=== PATIENT | female | born 1950 | race Caucasian/White ===

== ENCOUNTER 2019-10-07 08:55 | Outpatient (CLI) | payer MEDICARE, SELFPAY ==
--- NOTE | ~2019-10-07 | XR_ITS ---
EXAMINATION: XR hand LT min 3V DATE: 10/07/2019 09:20 INDICATION: Left hand pain TECHNIQUE: Posteroanterior, oblique and lateral views of the left hand were obtained. COMPARISON: None. FINDINGS: Alignment of the hand appears normal. Assessment of the left wrist joint space and alignment is limit ed due to position of the hand with mild dorsiflexion. No fracture. Polyarticular osteoarthritis, mod erate severity at the first carpometacarpal joint and mild at multiple predominantly distal interphal angeal joints. Soft tissues are unremarkable. IMPRESSION: 1. Polyarticular osteoarthritis, moderate at the first carpometacarpal joint and mild at multiple pre dominantly distal interphalangeal joints. 2. Limited evaluation of the left wrist due to positioning of the hand. Could consider dedicated left wrist radiographs as clinically indicated. Reviewed, dictated and finalized at location A. IMPRESSION: 1. Polyarticular osteoarthritis, moderate at the first carpometacarpal joint an d mild at multiple predominantly distal interphalangeal joints. 2. Limited evaluation of the left wrist due to positioning of the hand. Could c onsider dedicated left wrist radiographs as clinically indicated.
== END 2019-10-07 08:56 | disposition home or self-care (01) ==
LOC: CHSIMG 08:57
PROVIDERS: PCP Nurse Practitioner Family; Visit Provider Orthopaedic Surgery
DX: M79.642 Pain in left hand (principal)
CPT/HCPCS: 73130

== ENCOUNTER 2019-11-22 11:49 | Emergency (ER) | payer MEDICARE, SELFPAY ==
--- NOTE | 2019-11-22 11:55 | ECG_ITS ---
Measurements Intervals [place] Rate: 66 P: 42 DE: 164 QRS: -17 QRSD: 95 T: 7 QT: 376 QTc: 394 Interpretive Statements SINUS RHYTHM VENTRICULAR PREMATURE COMPLEX DELAYED PRECORDIAL R/S TRANSITION BORDERLINE ST-T WAVE ABNORMALITY- ANT/INF LEADS BORDERLINE ECG Electronically Signed On 11-24-2019 7:04:56 CDT by Alex Gaming D.O.
[2019-11-22 12:05] VITALS: BP 148/76; PULSE 64; RESP 17; TEMP 36.8; O2SAT 99
--- NOTE | 2019-11-22 12:16 | ED.GENADULT ---
HPI - General Adult General Chief complaint: Arrhythmia/Palpitations Stated complaint: abnormal heart beat Time Seen by Provider: 11/22/19 11:51 Source: patient Mode of arrival: ambulatory History of Present Illness HPI narrative: Regina is a 69F with a PMH of Afib, HTN, DMII, LYNDON, and HLD that presented to the ED with concerns regarding her afib. Yesterday she felt like her heart was racing and she was back in Afib. Last night she took 125mg of metoprolol instead of her usual 75. Today she feels normal. She never had chest pain, syncope/near syncope, N/V or shortness of breath. She just had the palpitations. Related Data Home Medications Medication Instructions Recorded Confirmed empagliflozin [Jardiance] 25 mg PO DAILY 02/22/19 11/22/19 glimepiride 4 mg PO BID 02/22/19 11/22/19 levothyroxine 50 mcg PO DAILY 02/22/19 11/22/19 losartan-hydrochlorothiazide 1 tablet PO DAILY 02/22/19 11/22/19 metformin 1,000 mg PO BID 02/22/19 11/22/19 metoprolol succinate 75 mg PO DAILY 02/22/19 11/22/19 rivaroxaban [Xarelto] 20 mg PO DAILY 02/22/19 11/22/19 rosuvastatin 10 mg PO DAILY 02/22/19 11/22/19 Allergies Allergy/AdvReac Type Severity Reaction Status Date / Time Penicillins Allergy Intermediate Unknown Verified 10/07/19 10:30 Review of Systems Constitutional: Constitutional: Denies chills, Denies fatigue, Denies fever(s) and Denies weakness Eyes: Eyes: Reports no additional eye complaints ENT: Reports system reviewed and no additional complaints, except as documented Cardiovascular: Cardiovascular: Reports as per HPI Respiratory: Respiratory: Reports no additional respiratory complaints Gastrointestinal: Gastrointestinal: Reports no additional gastrointestinal complaints Genitourinary: Genitourinary: Reports no additional female genitourinary complaints Musculoskeletal: Musculoskeletal: Reports no additional musculoskeletal complaints Integumentary/Breasts: Skin/Breast: Reports system reviewed and no additional complaints, except as docu Neurologic: Reports system reviewed and no additional complaints, except as documented Psychiatric: Psychiatric: Reports no additional psychiatric complaints Endocrine: Endocrine: Reports no additional endocrine complaints Hematologic/Lymphatic: Hematologic/Lymphatic: Reports no additional hematologic/lymphatic complaints Allergic/Immunologic: Allergic/Immunologic: Reports no additional allergic/immunologic complaints [facility] Past Medical History Medical History Abnormality of heart beat Adenomatous colon polyp Anxiety Arrhythmia Atrial fibrillation, transient Diverticulitis Epigastric pain LYNDON (generalized anxiety disorder) GERD (gastroesophageal reflux disease) History of IBS Hyperlipidemia Hypertension LLQ pain Microscopic colitis Type 2 diabetes mellitus Last A1C as of 10/07/19: 7.9 Vision abnormalities Surgical History Surgical History H/O: hysterectomy History of appendectomy History of thyroidectomy Family History Family History Father Hypertension Family history of arthritis Family history of malignant neoplasm FH myocardial infarction male first degree age known Family history of type 2 diabetes mellitus Mother Family history of malignant neoplasm of ovary Diabetes mellitus Other Family history of Alzheimer's disease Family history of allergic disorder Family history of coronary artery disease Family history of thyroid disease Social History Social History Smoking status: Current some day smoker Alcohol intake: current Exam Const: General: no acute distress and alert Orientation/consciousness: patient oriented x3 Limitations: No altered mental status HENMT: Head: normal to inspection Eyes: Conjunctivae: conju
[2019-11-22 12:24] LABS: Basophils Absolute Auto 0.04 K/mm3 (0.00-0.10); Basophils Percent Auto 0.7 % (0.0-1.0); Eosinophils Absolute Auto 0.05 K/mm3 (0.02-0.50); Eosinophils Percent Auto 0.8 % (1.0-6.0); Hematocrit 41.7 % (35.0-42.0); Hemoglobin 13.8 g/dL (11.7-13.8); Immature Granulocyte Absolute 0.02 K/mm3 (0.00-0.00); Immature Granulocyte Percent A 0.3 % (0.0-0.0); Lymphocytes Absolute Auto 1.31 K/mm3 (1.10-4.50); Lymphocytes Percent Auto 21.6 % (18.0-42.0); Mean Corpuscular HGB Conc 33.1 g/dL (32.0-36.0); Mean Corpuscular Hemoglobin 28.4 pg (27.0-31.0); Mean Corpuscular Volume 85.8 fL (78.0-102.0); Mean Platelet Volume 8.8 fl (9.2-11.8); Monocytes Absolute Auto 0.55 K/mm3 (0.10-0.90); Monocytes Percent Auto 9.1 % (2.0-11.0); Neutrophils Absolute Auto 4.1 K/mm3 (1.7-7.2); Neutrophils Percent Auto 67.5 % (50.0-70.0); Platelet Count Result 192 K/mm3 (150-420); Red Blood Count 4.86 M/mm3 (4.20-5.40); Red Cell Distribution Width 12.6 % (11.6-14.4); White Blood Count 6.1 K/mm3 (4.8-10.8)
[2019-11-22 12:35] LABS: Prothrombin Time 10.7 Seconds (9.64-11.0)
[2019-11-22 12:42] LABS: BNP 63.2 pg/mL (0-100)
[2019-11-22 12:50] LABS: Alanine Aminotransferase 27 U/L (14-59); Albumin Level 3.6 g/dL (3.4-5.0); Alkaline Phosphatase 51 U/L (46-116); Anion Gap 9 mmol/L (8-16); Aspartate Amino Transferase 15 U/L (15-37); Bilirubin,Total 0.5 mg/dL (0.00-1.00); Blood Urea Nitrogen 13 mg/dL (7-18); Calcium 8.8 mg/dL (8.5-10.1); Carbon Dioxide 30 mmol/L (21-32); Chloride 101 mmol/L (98-108); Estimated Glomerular Filt Rate > 60; Glucose 188 mg/dL (70-99); Osmolality Calculated 295 mOsm/kg (285-295); Sodium 140 mmol/L (136-145); Total Protein 7.4 g/dL (6.4-8.2); Troponin I < 0.02 ng/mL (0.00-0.056)
[2019-11-22 12:51] LABS: Thyroid Stimulating Hormone 2.75 uIU/mL (0.36-3.74)
[2019-11-22 13:17] VITALS: BP 110/61; PULSE 65; RESP 16; O2SAT 98
== END 2019-11-22 13:19 | disposition home or self-care (01) ==
PROVIDERS: Emergency Provider Family Medicine; PCP Nurse Practitioner Family
DX: I48.91 Unspecified atrial fibrillation (principal); K21.9 Gastro-esophageal reflux disease without esophagitis; E78.5 Hyperlipidemia, unspecified; I10 Essential (primary) hypertension; E11.9 Type 2 diabetes mellitus without complications; F17.200 Nicotine dependence, unspecified, uncomplicated; Z79.899 Other long term (current) drug therapy
CPT/HCPCS: 36415; 80053; 80307; 83880; 84443; 84484; 85025; 85610; 93005; 99283; 99284

== ENCOUNTER 2019-12-11 12:12 | Outpatient (CLI) | payer MEDICARE, SELFPAY ==
--- NOTE | 2019-12-11 12:24 | ECHO_ITS ---
Patient Info Name: Regina Quinteros Age: 69 years : 1950 Gender: Female Ht: 69 in Wt: 209 lbs BSA: 2.18 m2 HR: 68 bpm BP: 140 / 63 mmHg Heart Rhythm: Sinus Rhythm Technical Quality: Good Exam Date: 12/11/2019 12:29 PM Exam Location: [facility] EM[facility] Patient Status: Outpatient Admit Date: 12/11/2019 Staff Ordering Physician: Lakhwinder Johns MD Cylinder Press Operator Apprentice: Natividad Balderrama RDCS Attending Provider: Lakhwinder Johns MD Referring Physician: Nat RUIZ; Exam Type: CA echo doppler color flow Study Info Indications I48.0 - Paroxysmal atrial fibrillation Complete two-dimensional, color flow and Doppler transthoracic echocardiogram is performed. Strain analysis performed. History/Risk Factors Hypertension: Yes Dyslipidemia: Yes Congenital Heart Disease (CHD): No Diabetic Therapy: Oral Peripheral Arterial Disease (PAD): No Myocardial Infarction (RI): No Chronic Lung Disease: No Obesity: Yes Renal Disease: No Coronary Artery Disease (CAD) No Congestive Heart Failure (CHF): No Cardiomyopathy/LV Systolic Dysfunction: No Diabetes Mellitus: Yes COPD: No Cerebrovascular Disease: No Family History: Diabetes Mellitus, Coronary Artery Disease Deep Vein Thrombosis (DVT): None Dialysis: None Frailty Scale (CSHA): 2: Well Cardiac Arrest: No Summary 1. Complete two-dimensional, color flow and Doppler transthoracic echocardiogram is performed. 2. Left ventricular chamber dimension is normal. 3. Left ventricular systolic function is normal, estimated at 55-60%. 4. There is mildly increased left ventricular wall thickness. 5. The left ventricular diastolic function is grade I diastolic dysfunction. 6. E/e' 11 is mildly elevated. 7. Global longitudinal strain is normal at -17.8%. 8. Left atrial chamber dimension is mildly enlarged. 9. There is mild tricuspid valve regurgitation. 10. No pulmonary hypertension, estimated pulmonary arterial systolic pressure is 27 mmHg. 11. There is trace pulmonic regurgitation. Recommendations * Continue medical therapy for diabetes. Left Ventricle E/e' 11 is mildly elevated. Global longitudinal strain is normal at -17.8%. Left ventricular chamber dimension is normal. Left ventricular systolic function is normal, estimated at 55-60%. There is mildly increased left ventricular wall thickness. The left ventricular diastolic function is grade I diastolic dysfunction. Right Ventricle Right ventricular chamber dimension is normal. Right ventricular systolic function is normal. Left Atria Left atrial chamber dimension is mildly enlarged. Right Atria Right atrial chamber dimension is normal. Aortic Valve The aortic valve is trileaflet. There is no aortic valve stenosis. There is no aortic valve regurgitation. Pulmonic Valve There is trace pulmonic regurgitation. Mitral Valve There is no mitral valve stenosis. There is no mitral valve regurgitation. Tricuspid Valve There is mild tricuspid valve regurgitation. No pulmonary hypertension, estimated pulmonary arterial systolic pressure is 27 mmHg. Pericardium/Pleural There is no pericardial effusion. Inferior Vena Cava Normal inferior vena cava with >50% collapse upon inspiration consistent with normal right atrial pressure, 5 mmHg. Aorta The aortic root size at the sinus of Valsalva is normal. Left Ventricular Outflow Tract
[2019-12-11 12:39] LABS: Creatinine Urine 58.88 mg/dL (40-278); Microalbumin Urine Random < 13.0 mg/L
[2019-12-11 13:30] LABS: Cholesterol 147 mg/dL (0-200); Free T4 Free Thyroxine 0.96 ng/dL (0.76-1.46); HDL Direct 51 mg/dL (40-60); LDL Cholesterol Calculated 53 mg/dL (<130); Triglycerides 217 mg/dL (0-150)
== END 2019-12-11 12:13 | disposition home or self-care (01) ==
LOC: CHSIMG 12:15
PROVIDERS: PCP Nurse Practitioner Family; Visit Provider Internal Medicine Cardiovascular Disease
DX: I48.0 Paroxysmal atrial fibrillation (principal); E11.59 Type 2 diabetes mellitus with other circulatory complications; I10 Essential (primary) hypertension; E11.69 Type 2 diabetes mellitus with other specified complication; E78.5 Hyperlipidemia, unspecified; E03.9 Hypothyroidism, unspecified
CPT/HCPCS: 36415; 80061; 82043; 84439; 93306

== ENCOUNTER 2020-01-26 08:51 | Outpatient (CLI) | payer MEDICARE, SELFPAY ==
--- NOTE | ~2020-01-26 | MM_ITS ---
EXAMINATION: MM screening [facility] BI w bear HISTORY: Screening mammogram TECHNIQUE: Craniocaudal and mediolateral oblique 3-D tomosynthesis images were obtained and synthetic 2-D images were generated. CAD analysis was submitted and interpreted. COMPARISON: 08/23/2017, 05/24/2016 BREAST PARENCHYMAL COMPOSITION: There are scattered areas of fibroglandular density. FINDINGS: There is no evidence of suspicious mass, calcification, or architectural distortion to sugg est malignancy in either breast. There has been no suspicious interval change. IMPRESSION: 1. No mammographic evidence of malignancy. 2. Recommend routine screening mammography in one year. BI-RADS Category 1: Negative Reviewed, dictated and finalized at location A.
== END 2020-01-26 08:52 | disposition home or self-care (01) ==
PROVIDERS: PCP Nurse Practitioner Family; Visit Provider Student in an Organized Health Care Education/Training Program
DX: Z12.31 Encounter for screening mammogram for malignant neoplasm of breast (principal)
CPT/HCPCS: 77063; 77067

== ENCOUNTER → 2020-08-11 00:13 | Outpatient (CLI) | payer MEDICARE, SELFPAY ==
[2020-08-11 17:04] LABS: SARS-CoV-2 RNA PCR Negative
== END ==
PROVIDERS: PCP Nurse Practitioner Family; Visit Provider Orthopaedic Surgery
DX: Z20.822 Contact with and (suspected) exposure to COVID-19 (principal)
CPT/HCPCS: 36415; 80048; C9803; U0003; U0005

== ENCOUNTER 2020-08-11 08:25 | Outpatient (CLI) | payer MEDICARE, SELFPAY ==
[2020-08-11 09:07] LABS: Anion Gap 4 mmol/L (8-16); Blood Urea Nitrogen 11 mg/dL (7-17); Calcium 9.3 mg/dL (8.4-10.2); Carbon Dioxide 36 mmol/L (22-30); Chloride 101 mmol/L (98-107); Estimated Glomerular Filt Rate > 60; Glucose 111 mg/dL (65-105); Potassium 3.9 mmol/L (3.4-5.0); Sodium 141 mmol/L (137-145)
== END 2020-08-11 08:26 | disposition home or self-care (01) ==
LOC: ANHSURGERY 08:26
PROVIDERS: Anesthesiology; PCP Nurse Practitioner Family; Visit Provider Orthopaedic Surgery
DX: Z01.812 Encounter for preprocedural laboratory examination (principal); E11.9 Type 2 diabetes mellitus without complications
CPT/HCPCS: 36415; 80048

== ENCOUNTER 2020-08-13 06:01 | Day surgery (SDC) | payer MEDICARE, SELFPAY ==
[2020-08-10 14:05] VITALS: BMI 31.6
--- NOTE | 2020-08-12 12:52 | WPDANESEPPF ---
Anes - Initial Pre Proc Eval Procedure: Operation Date: 08/13/20 09:00 Proposed Procedures p Left Middle Finger Release of A-1 Joan - Pratik Epperson MD Date/Time: 08/12/20 12:52 Surgeon: Pratik Epperson MD Pre Op Diagnosis: 3rd digit trigger finger left Patient Data Age: 69 Gender: F Height: 1.73 m Weight: 94.54 kg Allergies Allergy/AdvReac Type Severity Reaction Status Date / Time Penicillins AdvReac Intermediate RASH ON Verified 08/13/20 08:14 STOMACH, N/V, DIARRHEA Home Medications Medication Instructions Recorded Confirmed Type empagliflozin [Jardiance] 25 mg PO DAILY 02/22/19 08/13/20 History glimepiride 4 mg PO BID 02/22/19 08/13/20 History levothyroxine 50 mcg PO DAILY 02/22/19 08/13/20 History losartan-hydrochlorothiazide 1 tablet PO DAILY 02/22/19 08/13/20 History metformin 1,000 mg PO BID 02/22/19 08/13/20 History metoprolol succinate 75 mg PO QAM 02/22/19 08/13/20 History rivaroxaban [Xarelto] 20 mg PO DAILY 02/22/19 08/13/20 History rosuvastatin 10 mg PO DAILY 02/22/19 08/13/20 History alprazolam 0.5 mg tablet 0.5 mg PO DAILY PRN #20 tablet 02/26/19 08/13/20 Rx budesonide 3 mg 3 mg PO DAILY #30 cap 12/04/19 08/13/20 Rx capsule,delayed,extended release chlorhexidine gluconate 4 % 1 applic TOPICAL ONCE #118 ml 08/10/20 08/13/20 Rx topical liquid exenatide microspheres [Bydureon 2 mg SUBCUT WEEKLY 08/10/20 08/13/20 History BCise] Patient hx anesthesia problems: none Family hx anesthesia problems: none PMFSH Past Medical History Medical History Abnormality of heart beat Adenomatous colon polyp Anxiety Arrhythmia Atrial fibrillation, transient Diverticulitis Epigastric pain LYNDON (generalized anxiety disorder) GERD (gastroesophageal reflux disease) History of IBS Hyperlipidemia Hypertension LLQ pain Microscopic colitis Type 2 diabetes mellitus Last A1C as of 10/07/19: 7.9 Vision abnormalities Surgical History Surgical History H/O: hysterectomy History of appendectomy History of thyroidectomy Family History Family History Father Hypertension Family history of arthritis Family history of malignant neoplasm FH myocardial infarction male first degree age known Family history of type 2 diabetes mellitus Mother Family history of malignant neoplasm of ovary Diabetes mellitus Other Family history of Alzheimer's disease Family history of allergic disorder Family history of coronary artery disease Family history of thyroid disease Social History Social History (Updated 08/09/20 @ 13:13 by Kenia Otero MA) Smoking status: Never smoker Second hand tobacco smoke exposure: No Alcohol intake: current Alcohol use details: STATES MAYBE 1/MONTH Substance use: never Substance use type: does not use Living arrangements: with family Additional living arrangements comments: PT LIVES WITH SPOUSE - [place] Gender identity (if verbalized by the patient): Female Spiritual care concerns: No Anes - Eval Final PreProcedure Day of Procedure 08/12/20 12:52 Patient weight: obese Heart: regular rate and rhythm Lungs: clear to auscultation and normal air movement Airway: Mallampati scale class II and special considerations poor dentition (loose implant on top left) Neurological: alert and oriented Last oral intake: >/= 8 hours ASA classification: III Emergent: no Anesthetic plan: proceed Anesthesia type and monitoring: general LMA and standard monitoring Informed Consent: The patient's anesthetic plan and its attendant risks and benefits were discussed with the patient/family/POA. Questions were solicited and answers provided to the satisfaction of the patient/family/POA.
[2020-08-13] VITALS (8 sets, daily range): BP systolic 123–151; BP diastolic 59–85; PULSE 63–77; RESP 10–20; TEMP 36.6–37; O2SAT 92–100
--- NOTE | 2020-08-13 07:22 | WPDHPUPDATE1 ---
History and Physical Update Update Date/Time: 08/13/20 07:22 History and Physical has been reviewed, including an updated exam of the patient. There are NO changes in the patient's condition. Risks, benefits, and alternatives have been discussed and questions answered. Patient agrees to proceed with procedure.
[2020-08-13] MEDS: LACTATED RINGERS 1,000 ML 30 ML IV CONT (08:25)
[2020-08-13 08:38] LABS: Glucose Point of Care 136 (65-105)
[2020-08-13] MEDS: CELECOXIB 200 MG CAPSULE PO (08:38)
[2020-08-13] MEDS: ACETAMINOPHEN 500 MG TABLET 1000 MG PO (08:38)
[2020-08-13] MEDS: ceFAZolin 2 GM/D5W 50 ML 2 GM/50 ML BAG IVPB (09:17)
[2020-08-13] MEDS: BUPIVACAINE HCL 0.5% PF 30 ML VIAL INFILTRATE (09:43)
--- NOTE | 2020-08-13 09:57 | PM.PROC ---
Procedure Note - Detailed Date of procedure: 08/13/20 Pre-op diagnosis: 3rd digit trigger finger left Post-op diagnosis: same Procedure performed: RELEASE OF A1 JET LEFT 3RD DIGIT Description of procedure: THE PATIENT WAS TAKEN TO THE OR IN STABLE CONDITION. THE LEFT UPPER EXTREMITY WAS PREPPED AND DRAPED IN THE USUAL STERILE FASHION. THE TORNEQUET WAS INFLATED. AN INCISION WS MADE OVER THE 3RD DIGIT A1 JET DOWN THROUGH THE SUBCUTANEOUS TISSUES UNTIL THE A1 JET SHEATH WAS VISUALIZED. AN INCISION WAS MADE OVER THE JET UNTIL THE FLEXOR TENDON WAS IDENTIFIED. THE INCISION CONTINUED PROXIMALLY AND DISTALLY UNTIL THE JET WAS RELEASED AND THE TENDON EXCURSION WAS WITHOUT TRIGGERING. THE TENDONS WERE DIRECTLY VISUALIZED AND WERE INTACT. THE TORNEQUET WAS DEFLATED AND THE BLEEDERS CAUTERIZED. THE WOUND WAS WASHED THOROUGHLY WITH STERILE WATER. THE SKIN WAS REPAIRED WITH 4-0 NYLON. A STERILE DRESSING WAS APPLIED. THE PATIENT WAS EXTUBATED AND SENT TO RECOVERY ROOM. Anesthesia: GLMA Surgeon: Pratik Epperson MD Estimated blood loss (mL): 1 Complications: No immediate complications Condition: stable Disposition: PACU
[2020-08-13 13:29] LABS: Glucose Point of Care 107 (65-105)
== END 2020-08-13 11:55 | disposition home or self-care (01) ==
PROVIDERS: PCP Nurse Practitioner Family; Visit Provider Orthopaedic Surgery
PROC: (CPT 26055; principal; 2020-08-13 09:00)
DX: M65.332 Trigger finger, left middle finger (principal); I48.91 Unspecified atrial fibrillation; K21.9 Gastro-esophageal reflux disease without esophagitis; I10 Essential (primary) hypertension; E78.5 Hyperlipidemia, unspecified; E11.9 Type 2 diabetes mellitus without complications; F41.1 Generalized anxiety disorder; Z79.84 Long term (current) use of oral hypoglycemic drugs; E66.9 Obesity, unspecified; Z68.31 Body mass index [BMI] 31.0-31.9, adult
CPT/HCPCS: 26055; 82948; A9270; J0690; J1100; J2250; J2405; J2704; J3010; J7120

== ENCOUNTER 2020-09-29 07:05 | Outpatient (CLI) | payer MEDICARE, SELFPAY ==
[2020-09-29 08:34] LABS: Alanine Aminotransferase 32 U/L (14-59); Albumin Level 3.6 g/dL (3.4-5.0); Alkaline Phosphatase 60 U/L (46-116); Anion Gap 11 mmol/L (8-16); Aspartate Amino Transferase 15 U/L (15-37); Bilirubin,Total 0.4 mg/dL (0.00-1.00); Blood Urea Nitrogen 13 mg/dL (7-18); Carbon Dioxide 30 mmol/L (21-32); Chloride 102 mmol/L (98-108); Estimated Glomerular Filt Rate > 60; Glucose 129 mg/dL (70-99); Osmolality Calculated 298 mOsm/kg (285-295); Potassium 3.9 mmol/L (3.5-5.1); Sodium 143 mmol/L (136-145); Thyroid Stimulating Hormone 3.45 uIU/mL (0.36-3.74)
== END 2020-09-29 07:06 | disposition home or self-care (01) ==
PROVIDERS: PCP Family Medicine; Visit Provider Internal Medicine Endocrinology, Diabetes & Metabolism
DX: E11.65 Type 2 diabetes mellitus with hyperglycemia (principal); E03.9 Hypothyroidism, unspecified
CPT/HCPCS: 36415; 80053; 84443

== ENCOUNTER 2021-09-12 07:39 | Outpatient (CLI) | payer MEDICARE, SELFPAY ==
--- NOTE | ~2021-09-12 | US_ITS ---
US renal BI DATE: 09/12/2021 08:07 INDICATION: Abdominal pain. Left intermittent flank pain for 2 months TECHNIQUE: Real-time imaging of the kidneys and urinary bladder COMPARISON: None FINDINGS: No renal mass lesion or hydronephrosis is evident. The urinary bladder is unremarkable. IMPRESSION: No significant abnormality Reviewed, dictated and finalized at Location A. Reviewed, dictated and finalized at location A. IMPRESSION: No significant abnormality
== END 2021-09-12 07:40 | disposition home or self-care (01) ==
LOC: CHSIMG 07:44
PROVIDERS: PCP Family Medicine; Visit Provider Nurse Practitioner Family
DX: R10.9 Unspecified abdominal pain (principal)
CPT/HCPCS: 76775

== ENCOUNTER 2022-02-06 07:36 | Outpatient (CLI) | payer MEDICARE, SELFPAY ==
--- NOTE | ~2022-02-06 | CT_ITS ---
EXAMINATION: CT abdomen pelvis w con INDICATION: Abdominal and left flank pain TECHNIQUE: Computed tomographic images of the abdomen and pelvis were obtained after the administrati on of 100 cc of Omnipaque 350 intravenous contrast. The dose-length product (DLP) was 841.79 mGy-cm. Automated exposure control and iterative reconstruction technique were employed. COMPARISON: 06/02/2010 FINDINGS: Minimal dependent atelectasis is present in the lung bases. The heart size is normal. A sta ble 2 mm nodule of the right middle lobe is consistent with old granulomatous disease. There is a sma ll sliding hiatal hernia. The gallbladder is surgically absent. There is mild enlargement of the comm on bile duct and central intrahepatic ducts which is likely due to post cholecystectomy state. The li qing, spleen, pancreas, and adrenal glands are normal. Hypoattenuating lesions in the kidneys, measuri ng up to 4 mm on the right, are too small to characterize but likely represent cysts. No pathological ly enlarged abdominal or pelvic lymph nodes are identified. There is no free intraperitoneal gas or e vidence of bowel obstruction. Colonic diverticulosis is present without evidence of diverticulitis. T here is mild lumbar spondylosis. IMPRESSION: 1. No CT correlate for the patient's symptoms. Reviewed, dictated and finalized at location B. 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
[2022-02-06 08:05] LABS: Estimated Glomerular Filt Rate > 60
== END 2022-02-06 07:37 | disposition home or self-care (01) ==
LOC: CHSIMG 07:38
PROVIDERS: PCP Family Medicine; Visit Provider Family Medicine
DX: R10.13 Epigastric pain (principal); R10.9 Unspecified abdominal pain
CPT/HCPCS: 74177; Q9967

== ENCOUNTER 2022-08-10 10:16 | Outpatient (CLI) | payer MEDICARE, SELFPAY ==
--- NOTE | ~2022-08-10 | XR_ITS ---
Right Shoulder Technique: AP and scapular Y views were obtained. Clinical History: Pain Findings: No fracture or dislocation is seen. Osseous alignment is anatomic. There is mild AC joint d egenerative change. Glenohumeral joint is intact. Soft tissues are unremarkable. Impression: Mild AC joint degenerative change. Reviewed, dictated and finalized at location . Impression: Mild AC joint degenerative change.
--- NOTE | ~2022-08-10 | XR_ITS ---
Cervical Spine: AP, lateral, open-mouth views Clinical History: Pain Findings: There is straightening of the normal cervical lordosis. Minimal grade I anterolisthesis of C4 over C5 present. Intervertebral disc spaces are well preserved. There is mild to moderate facet ar thropathy the mid cervical spine. Pre-vertebral soft tissues are unremarkable. Impression: Minimal grade 1 anterolisthesis of C4 over C5. Mild degenerative spondylosis otherwise, as noted above. Reviewed, dictated and finalized at location . Impression: Minimal grade 1 anterolisthesis of C4 over C5. Mild degenerative spondylosis otherwise, as noted above.
--- NOTE | ~2022-08-10 | MM_ITS ---
EXAMINATION: MM screening [facility] BI w bear HISTORY: Screening mammogram TECHNIQUE: Craniocaudal and mediolateral oblique 3-D tomosynthesis images were obtained and synthetic 2-D images were generated. CAD analysis was submitted and interpreted. COMPARISON: 01/26/2020, 08/23/2017, 05/24/2016 BREAST PARENCHYMAL COMPOSITION: There are scattered areas of fibroglandular density. FINDINGS: No suspicious mass, calcification, or architectural distortion are identified in either tosin ast to suggest malignancy. There has been no suspicious interval change. IMPRESSION: 1. No mammographic evidence of malignancy. 2. Recommend routine screening mammography in one year. BI-RADS Category 1: Negative Reviewed, dictated and finalized at location A.
== END 2022-08-10 10:17 | disposition home or self-care (01) ==
LOC: CHSIMG 10:19
PROVIDERS: PCP Family Medicine; Visit Provider Family Medicine
DX: Z12.31 Encounter for screening mammogram for malignant neoplasm of breast (principal); S49.91XA Unspecified injury of right shoulder and upper arm, initial encounter; M54.2 Cervicalgia; M43.02 Spondylolysis, cervical region
CPT/HCPCS: 72040; 73030; 77063; 77067

== ENCOUNTER 2022-11-02 06:41 | Outpatient (CLI) | payer MEDICARE, SELFPAY ==
--- NOTE | ~2022-11-02 | MR_ITS ---
MRI of the cervical spine Clinical History: Right-sided paresthesias Technique: Axial T2-weighted and gradient images, and sagittal T1-weighted, T2-weighted, and STIR omari ges were acquired. Findings: There is no fracture or subluxation of the cervical spine. Vertebral bodies maintain normal height and alignment. No suspicious bone marrow signal abnormality seen. At C2-C3, there is no significant disc bulge or herniation. There is no spinal canal stenosis, cord c ompression, or neural foraminal narrowing. At C3-C4, there is minimal right paracentral to right foraminal osteophyte formation. No spinal canal stenosis, cord compression, or definite neural foraminal narrowing. There is mild left facet arthrop athy. At C4-C5, there is minimal disc osteophyte complex and mild bilateral facet arthropathy. No central c anal stenosis or cord compression. Probable mild left neural foraminal narrowing. Right neural forame n preserved. At C5-C6, there is a broad-based disc protrusion, which mildly flattens the ventral cord. There is bi lateral neural foraminal narrowing. At C6-C7, there is no disc bulge or herniation. No spinal canal stenosis, cord compression, or neural foraminal narrowing. No abnormal signal evident in the spinal cord. Paravertebral soft tissues are unremarkable. Impression: Broad-based disc protrusion at C5-C6, resulting in mild flattening the ventral cord. Multilevel mild neural foraminal narrowing, as detailed above. Reviewed, dictated and finalized at [facility]. Impression: Broad-based disc protrusion at C5-C6, resulting in mild flattening the ventral cord. Multilevel mild neural foraminal narrowing, as detailed above.
== END 2022-11-02 06:42 | disposition home or self-care (01) ==
LOC: CHSIMG 06:42
PROVIDERS: PCP Family Medicine; Visit Provider Family Medicine
DX: M54.12 Radiculopathy, cervical region (principal); M50.222 Other cervical disc displacement at C5-C6 level
CPT/HCPCS: 72141

== ENCOUNTER 2023-09-18 00:28 | Day surgery (SDC) | payer MEDICARE, SELFPAY ==
[2023-09-04 13:42] VITALS: BMI 26.9
--- NOTE | 2023-09-05 09:35 | PC.NURSE ---
Spoke with _PATIENT__ regarding medication _XARELTO__. Pt. verbalizes understanding that the last dose of _XARELTO is to be taken on _09/15/2023__ and the Endoscopist will instruct them when to restart after the procedure.
--- NOTE | 2023-09-05 11:12 | PC.NURSE ---
Spoke with __PATIENT__ regarding medication __XARELTO____. Pt. verbalizes understanding that the last dose of _XARELTO_ is to be taken on ____09/05/2023___ and the Endoscopist will instruct them when to restart after the procedure.
[2023-09-18 09:56] VITALS: BP 121/79; PULSE 77; RESP 18; TEMP 36.1; O2SAT 99; BMI 26.5
[2023-09-18] MEDS: LACTATED RINGERS 1,000 ML 150 ML IV CONT (10:21)
[2023-09-18 10:27] LABS: Glucose Point of Care 145 mg/dl (65-105)
--- NOTE | 2023-09-18 10:59 | WPDANESEPPF ---
Anes - Initial Pre Proc Eval Procedure: Operation Date: 09/18/23 11:30 Proposed Procedures p Colonoscopy - Alirio Alicia MD Date/Time: 09/18/23 10:59 Surgeon: Alirio Alicia MD Pre Op Diagnosis: benign neoplasm of colon Patient Data Age: 73 Gender: F Height: 1.73 m Weight: 79.1 kg Last Vital Signs Temp 36.1 C L 09/18/23 09:56 Pulse 77 09/18/23 09:56 Resp 18 09/18/23 09:56 BP 121/79 09/18/23 09:56 Pulse Ox 99 09/18/23 09:56 O2 Del Method Room Air 09/18/23 09:56 Allergies Allergy/AdvReac Type Severity Reaction Status Date / Time Penicillins Allergy Intermediate RASH ON Verified 09/18/23 10:06 STOMACH, N/V, DIARRHEA Home Medications Medication Instructions Recorded Confirmed Type empagliflozin 25 mg tablet 25 mg PO DAILY 02/22/19 09/18/23 History (Jardiance) glimepiride 4 mg tablet 4 mg PO BID 02/22/19 09/18/23 History levothyroxine 50 mcg tablet 50 mcg PO DAILY 02/22/19 09/18/23 History losartan 50 mg-hydrochlorothiazide 1 tablet PO DAILY 02/22/19 09/18/23 History 12.5 mg tablet metformin 500 mg tablet,extended 1,000 mg PO BID 02/22/19 09/18/23 History release 24 hr rivaroxaban 20 mg tablet (Xarelto) 20 mg PO QPM 02/22/19 09/18/23 History rosuvastatin 10 mg tablet 10 mg PO DAILY 02/22/19 09/18/23 History alprazolam 0.5 mg tablet (Xanax) 0.5 mg PO DAILY PRN anxiety #20 02/02/22 09/18/23 Rx tabs metoprolol succinate 50 mg 50 mg PO QAM 08/10/22 09/18/23 History tablet,extended release 24 hr multivitamin (Daily Multi-Vitamin 1 tablet PO DAILY 06/28/23 09/18/23 History tablet) semaglutide 1 mg/dose (4 mg/3 mL) 1 mg subcut WEEKLY 06/28/23 09/18/23 History subcutaneous pen injector (Ozempic) magnesium oxide 400 mg PO DAILY 09/04/23 09/18/23 History metoprolol succinate 100 mg 100 mg PO DAILY 09/04/23 09/18/23 History tablet,extended release 24 hr Laboratory Tests 09/18/23 10:14 POC Capillary Glucose 145 H mg/dl (65-105) Patient hx anesthesia problems: none Family hx anesthesia problems: none Results Review: All pre-operative results and documents have been reviewed as part of the pre-operative evaluation. [facility] Past Medical History Medical History Abnormality of heart beat Adenomatous colon polyp Anxiety Arrhythmia Atrial fibrillation, transient Diverticulitis Epigastric pain LYNDON (generalized anxiety disorder) GERD (gastroesophageal reflux disease) History of IBS Hyperlipidemia Hypertension LLQ pain Microscopic colitis Status post hysteroscopy Type 2 diabetes mellitus Last A1C as of 10/07/19: 7.9 Vision abnormalities Surgical History Surgical History History of appendectomy History of thyroidectomy Family History Family History Father Hypertension Family history of arthritis Family history of malignant neoplasm FH myocardial infarction male first degree age known Family history of type 2 diabetes mellitus Mother Family history of malignant neoplasm of ovary Diabetes mellitus Other Family history of Alzheimer's disease Family history of allergic disorder Family history of coronary artery disease Family history of thyroid disease Social History Social History Smoking status: Never smoker Second hand tobacco smoke exposure: No Alcohol intake: current Alcohol use details: STATES MAYBE 1/MONTH Substance use: never Substance use type: does not use Lack of Transportation: No Lack of Food: Never True Current Housing: I Have Housing Concerned About Future Housing: No Difficulty Paying Gas/Electric Bills: No Difficulty Paying for Meds: No Currently Unemployed: No Education: Bachelor's Degree Difficulty w/ Childcare or Family
--- NOTE | 2023-09-18 11:47 | PM.HPGS ---
History of Present Illness History of Present Illness Consent: Risks, benefits, and alternatives have been discussed and questions answered. Patient agrees to proceed with procedure. Chief complaint: benign neoplasm of colon Narrative: Regina Quinteros is a 73 year old female with colon polyp in 2019, also h/o microscopic colitis using budesonide every other day and doing well Review of Systems Review of Systems: All systems reviewed & are unremarkable except as noted in HPI and below PMFSH Past Medical History Medical History Abnormality of heart beat Adenomatous colon polyp Anxiety Arrhythmia Atrial fibrillation, transient Diverticulitis Epigastric pain LYNDON (generalized anxiety disorder) GERD (gastroesophageal reflux disease) History of IBS Hyperlipidemia Hypertension LLQ pain Microscopic colitis Status post hysteroscopy Type 2 diabetes mellitus Last A1C as of 10/07/19: 7.9 Vision abnormalities Surgical History Surgical History History of appendectomy History of thyroidectomy Family History Family History Father Hypertension Family history of arthritis Family history of malignant neoplasm FH myocardial infarction male first degree age known Family history of type 2 diabetes mellitus Mother Family history of malignant neoplasm of ovary Diabetes mellitus Other Family history of Alzheimer's disease Family history of allergic disorder Family history of coronary artery disease Family history of thyroid disease Social History Social History Smoking status: Never smoker Second hand tobacco smoke exposure: No Alcohol intake: current Alcohol use details: STATES MAYBE 1/MONTH Substance use: never Substance use type: does not use Lack of Transportation: No Lack of Food: Never True Current Housing: I Have Housing Concerned About Future Housing: No Difficulty Paying Gas/Electric Bills: No Difficulty Paying for Meds: No Currently Unemployed: No Education: Bachelor's Degree Difficulty w/ Childcare or Family Care: No Living arrangements: with family Additional living arrangements comments: PT LIVES WITH SPOUSE - [place] Gender identity (if verbalized by the patient): Female Spiritual care concerns: No Meds Home Medications and Allergies Home Medications Medication Instructions Recorded Confirmed Type empagliflozin 25 mg tablet 25 mg PO DAILY 02/22/19 09/18/23 History (Jardiance) glimepiride 4 mg tablet 4 mg PO BID 02/22/19 09/18/23 History levothyroxine 50 mcg tablet 50 mcg PO DAILY 02/22/19 09/18/23 History losartan 50 mg-hydrochlorothiazide 1 tablet PO DAILY 02/22/19 09/18/23 History 12.5 mg tablet metformin 500 mg tablet,extended 1,000 mg PO BID 02/22/19 09/18/23 History release 24 hr rivaroxaban 20 mg tablet (Xarelto) 20 mg PO QPM 02/22/19 09/18/23 History rosuvastatin 10 mg tablet 10 mg PO DAILY 02/22/19 09/18/23 History alprazolam 0.5 mg tablet (Xanax) 0.5 mg PO DAILY PRN anxiety #20 02/02/22 09/18/23 Rx tabs metoprolol succinate 50 mg 50 mg PO QAM 08/10/22 09/18/23 History tablet,extended release 24 hr multivitamin (Daily Multi-Vitamin 1 tablet PO DAILY 06/28/23 09/18/23 History tablet) semaglutide 1 mg/dose (4 mg/3 mL) 1 mg subcut WEEKLY 06/28/23 09/18/23 History subcutaneous pen injector (Ozempic) magnesium oxide 400 mg PO DAILY 09/04/23 09/18/23 History metoprolol succinate 100 mg 100 mg PO DAILY 09/04/23 09/18/23 History tablet,extended release 24 hr Allergies Allergy/AdvReac Type Severity Reaction Status Date / Time Penicillins Allergy Intermediate RASH ON Verified 09/18/23 10:06 STOMACH, N/V, DIARRHEA Vital Signs Vital Signs - 24 hr 09/18/23 09:56 Temperature 97.0 F L Pulse
[2023-09-18 12:13] VITALS: BP 98/59; PULSE 68; RESP 18; O2SAT 98
[2023-09-18 12:23] VITALS: BP 106/58; PULSE 72; RESP 22; O2SAT 99
[2023-09-18 12:33] VITALS: BP 125/75; PULSE 66; RESP 20; O2SAT 100
== END 2023-09-18 12:48 | disposition home or self-care (01) ==
PROVIDERS: PCP Family Medicine; Referring Provider Nurse Practitioner; Visit Provider Internal Medicine Gastroenterology
PROC: 0DJD8ZZ Inspection of Lower Intestinal Tract, Via Natural or Artificial Opening Endoscopic (ICD-10-PCS; CPT 45378; principal; 2023-09-18 11:30)
DX: D12.2 Benign neoplasm of ascending colon (principal); D12.3 Benign neoplasm of transverse colon; D12.4 Benign neoplasm of descending colon; K57.30 Diverticulosis of large intestine without perforation or abscess without bleeding; K64.8 Other hemorrhoids; I10 Essential (primary) hypertension; E78.5 Hyperlipidemia, unspecified; E11.9 Type 2 diabetes mellitus without complications; I48.0 Paroxysmal atrial fibrillation; F41.1 Generalized anxiety disorder; K21.9 Gastro-esophageal reflux disease without esophagitis; Z79.84 Long term (current) use of oral hypoglycemic drugs; Z79.01 Long term (current) use of anticoagulants; Z79.85 Long-term (current) use of injectable non-insulin antidiabetic drugs
CPT/HCPCS: 45380; 45385; 82948; 88305; J2704; J7120

== ENCOUNTER 2023-10-03 09:34 | Outpatient (NON) | payer MEDICARE, SELFPAY | END 2023-10-03 09:35 | disposition home or self-care (01) | LOC: CHSLAB 09:36 | PROVIDERS: Visit Provider Family Medicine | DX: R35.0 Frequency of micturition (principal) | CPT/HCPCS: 87086 ==

== ENCOUNTER 2024-10-14 14:40 | Outpatient (CLI) | payer MEDICARE, SELFPAY ==
--- OUTSIDE RECORDS SUMMARY | 2024-10-14 14:43 | XMS_ITS | Referral Summary ---
Author Organization [facility] [place] [address] Address [address] [place] [address] Care Team Providers Care Asbestos Siding Mechanic Name Role Phone Korey Boudreaux DO Primary Care Provider Encounters Date Type Department Care Team Description 07/23/2024 11:15 AM CDT Office Visit [facility] Cardiology [address] [place] [address] Wagner Chen MD Paroxysmal atrial fibrillation (HCC) (Primary Dx); Chronic anticoagulation; Hypertension associated with diabetes (HCC) from Last 3 Months Allergies Active Allergy Reactions Criticality Noted Date Comments Penicillins Rash Medium Medications multivitamin tablet tablet take 1 tablet by oral route every day with food 0 0 014 Active magnesium oxide (MAG-OX) 400 mg (241.3 mg elemental) tablet take 1 tablet by ORAL route every day 90 3 014 Active ALPRAZolam (XANAX) 0.25 mg tablet take 1 tablet by oral route every day 0 0 017 Active Additional Information Patient not taking.Reported on 07/23/2024 lactobacillus comb no.10 (PROBIOTIC) 20 billion cell capsule 0 0 017 Active budesonide EC (ENTOCORT EC) 3 mg 24 hr capsule Take 1 capsule (3 mg total) by mouth cotton sampler before breakfast 021 Active lancets miscIndications:T ype 2 diabetes mellitus with hyperglycemia, without long-term current use of insulin (HCC) Test sugar every morning 100 each 3 023 Active rosuvastatin (CRESTOR) 10 mg tablet Take 1 tablet (10 mg total) by mouth daily 90 tablet 3 024 Active Xarelto 20 mg tablet TAKE ONE TABLET BY MOUTH DAILY 90 tablet 2 024 Active metFORMIN (GLUCOPHAGE) 500 mg tabletIndications :Type 2 diabetes mellitus with hyperglycemia, without long-term current use of insulin ([facility]) TAKE ONE TABLET BY MOUTH FOUR TIMES A DAY 360 tablet 3 025 Active semaglutide (Ozempic) 1 mg/dose (4 mg/3 mL) pen injector injection INJECT 1 MG SUBCUTANEOUSLY EVERY 7 DAYS E11.65 9 mL 3 025 Active Jardiance 25 mg tabletIndications :Type 2 diabetes mellitus with hyperglycemia, without long-term current use of insulin ([facility]) TAKE ONE TABLET BY MOUTH IN THE MORNING 90 tablet 3 025 Active ALPRAZolam (XANAX) 0.5 mg tablet Take 1 tablet (0.5 mg total) by mouth nightly as needed for anxiety 025 Active losartan-hydroCHL OROthiazide (HYZAAR) 50-12.5 mg per tablet TAKE ONE TABLET BY MOUTH DAILY 90 tablet 2 025 Active glimepiride (AMARYL) 4 mg tabletIndications :Type 2 diabetes mellitus with hyperglycemia, without long-term current use of insulin ([facility]) TAKE ONE TABLET BY MOUTH TWICE A DAY 180 tablet 2 025 Active levothyroxine (SYNTHROID) 50 mcg tabletIndications :Acquired hypothyroidism TAKE ONE TABLET BY MOUTH DAILY 90 tablet 1 025 Active metoprolol XL (TOPROL-XL) 100 mg 24 hr tablet TAKE 1 TABLET BY MOUTH EVERY DAY 90 tablet 3 025 Active metoprolol XL (TOPROL-XL) 50 mg extended release tablet Take 1 tablet (50 mg total) by mouth daily 90 tablet 3 025 Active OneTouch Delica Plus Lancet 33 gauge misc TEST SUGAR ONCE DAILY IN THE MORNING 100 each 3 025 Active blood glucose diagnostic (OneTouch Verio test strips) stripIndications: Type 2 diabetes mellitus with hyperglycemia, without long-term current use of insulin ([facility]) TEST SUGAR ONCE DAILY IN THE MORNING 100 strip 3 025 Active blood glucose diagnostic stripIndications: Type 2 diabetes mellitus with hyperglycemia, without long-term current use of insulin ([facility]) Test sugar every morning 100 each 3 023 2024 Discontinued Active Problems Problem Noted Date Diagnosed Date Palpitations 02/16/2020 Mixed diabetic hyperlipidemi a associated with type 2 diabetes mellitus ([facility]) 07/29/2019 Assessment & Plan (06/24/2024 8:58 AM CDT): Chronic problem. Was at goal last check on Rosuvastatin 10mg. Last lipid panel: 02/12/23 LDL=61, EE=461. Will update labs. Verified that she uses mychart. Aware to check results/results letter in [employer]. Will contact by phone if needed. 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 Was at goal last year on Rosuvastatin 10mg. Last lipid panel: 12/01/21 LDL=62, RW=323. Will update labs. Verified that she uses mychart. Aware to check results/results letter in [employer]. Will contact by phone if needed. Assessment & Plan (06/29/2022 10:26 AM CDT): Chronic, well controlled Low fat Low cholesterol diet Exercise Continue statin therapy with Rosuvastatin Assessment & Plan (12/01/2021 1:17 PM CDT): Check lipids Continue with rosuvastatin Assessment & Plan (07/26/2021 11:25 AM CDT): Chronic, well controlled Low fat Low cholesterol diet Exercise Continue statin therapy Assessment & Plan (01/27/2021 10:36 AM CDT): LDL goal around 70 On Crestor Check lipid profile Assessment & Plan (09/30/2020 10:50 AM CDT): At goal on current medications. Continue statin therapy. Assessment & Plan (05/25/2020 4:31 PM SINGLE PASS SOIL STABILIZER OPERATOR): Goal of treatment , LDL cholesterol less than 100 ( less than 70 in patients with history of heart attacks and / or strokes ) NonHDL cholesterol ( total cholesterol minus HDL cholesterol ) goal less than 130 ( less than 100 in patients with history of heart attacks and / or strokes ) Low cholesterol, low fat diet was discussed and advised. Daily exercise On statin therapy with Crestor Myalgia due to statin 07/29/2019 Right ventricular enlargement 07/29/2019 Type 2 diabetes mellitus wit h hyperglycemia, without long-term current use of insulin 07/12/2016 Overview (08/25/2016): DM type 2 with diabetic dyslipidemia Assessment & Plan (06/24/2024 9:25 AM CDT): Chronic problem. A1c not at goal and worsened from 7.4% 12/26/23 to 7.8% today. Has been eating poorly since holidays. Snacking on candy in evenings. Not as active during winter months. Discussed improving diet/activity. If no improvement in BG/D4i--xrry make med changes at next appt. Current medications: Metformin 1000mg twice daily with meals Jardiance 25mg nightly Glimepiride 4mg twice daily with meals Ozempic 1 mg weekly Ozempic 0.5mg weekly Will update labs today. Verified that she uses [employer]. Aware to check results/results letter in [employer]. Will contact by phone if needed. UTD on DM eye exam (02/27/23 no DMR [facility]) Strive for regular exercise (30min most days) and diet (get at least 4-5 servings of fruit and veggies daily, avoid processed foods, increase lean protein intake and decrease carb portions as well as fruit juices, regular soda & desserts). Watch carbs and simple sugars. Check the blood sugar daily. Check the feet daily for skin breakdown and infection. Assessment & Plan (12/26/2023 1:39 PM CDT): Chronic, stable Patient encouraged to continue working on diet and exercise Continue current regimen including Ozempic 1 mg daily, glimepiride 4 mg twice a day, Jardiance 25 mg Assessment & Plan (05/31/2023 9:49 AM SINGLE PASS SOIL STABILIZER OPERATOR): Chronic , well controlled Stop Januvia Continue Ozempic , Glimeiride , Januvia and Metformin Diet and exercise. Assessment & Plan (02/12/2023 9:21 AM SINGLE PASS SOIL STABILIZER OPERATOR): Chronic problem. Not at goal/uncontrolled with A1c 8.3% today. Increase Ozempic from 0.5mg weekly to 1mg weekly. Current medications: Metformin 1000mg twice daily with meals Januvia 100mg daily Jardiance 25mg nightly Glimepiride 4mg twice daily with meals Ozempic 0.5mg weekly Will update labs today. Verified that she uses [employer]. Aware to check results/results letter in [employer]. Will contact by phone if needed. DM eye exam yearly; 02/27/23. Letter sent to get copy of report. Strive for regular exercise (30min most days) and diet (get at least 4-5 servings of fruit and veggies daily, avoid processed foods, increase lean protein intake and decrease carb portions as well as fruit juices, regular soda & desserts). Watch carbs and simple sugars. Check the blood sugar daily. Check the feet daily for skin breakdown and infection. Assessment & Plan (06/29/2022 10:26 AM CDT): Hba1c was Lab Results Component Value Date HGBA1C 8.2 06/29/2022 today, indicating inadequate DM control Goal Hba1c and blood glucose explained Diet and exercise were advised Prevention and treatment of hyypoglcyemia were discussed with the patient Blood glucose monitoring : 1 x day Adjustment to medications: Will try to switch from Bydureon to Ozempic Continue other meds Importance of diet and exercise was discussed. Assessment & Plan (12/01/2021 1:17 PM CDT): Better, but not at goal Continue current Encouraged to continue working on diet and exercise Assessment & Plan (07/26/2021 11:24 AM CDT): Hba1c was Lab Results Component Value Date HGBA1C 8.2 07/26/2021 today, indicating inadequte DM control Goal Hba1c and blood glucose explained Diet and exercise were advised Prevention and treatment of hyypoglcyemia were discussed with the patient Blood glucose monitoring : 1-2 x day Adjustment to medications: continue current Pt to focus o ndiet. Assessment & Plan (01/27/2021 10:36 AM CDT): Hba1c was Lab Results Component Value Date HGBA1C 7.8 01/27/2021 today, indicating inadequate DM control Goal Hba1c and blood glucose explained Diet and exercise , discussed Prevention and treatment of hyypoglcyemia discussed. Blood glucose monitoring : 1-2 x day Adjustment to oral medications: continue current Pt to work on diet and exercise to lower hba1c Low carb diet Assessment & Plan (09/30/2020 10:50 AM CDT): A1c 7.7. Elevated BG more r/t diet and exercise. Continue current medication plan. Add daily exercise as available. Check ac/pc BG 1-2 times per week in addition to bid testing. BG goals reviewed. Assessment & Plan (05/25/2020 4:31 PM SINGLE PASS SOIL STABILIZER OPERATOR): Hba1c was Lab Results Component Value Date HGBA1C 7.6 % 05/25/2020 today, indicating suboptimal DM control Goals blood sugars of 120-160 and Hba1c under 7 % was explained. 1800 calorie, consistent carb diet recommended, no more than 3-45 grams of carbs per meal, avoiding concentrated sweet drinks and rapid absorption carbs. 25-45 min daily aerobic and resistance exercise recommended Prevention and treatment of hyypoglcyemia discussed. Blood glucose monitoring with fingers sticks. Work on diet and exercise Continue current meds Assessment & Plan (12/18/2019 11:57 AM CDT): Hba1c was Lab Results Component Value Date HGBA1C 8.0 12/18/2019 today, indicating inadequate DM control 1800 calorie, consistent carb diet recommended, no more than 3-45 grams of carbs per meal, avoiding concentrated sweet drinks and rapid absorption carbs. 25-45 min daily aerobic and resistance exercise recommended Prevention and treatment of hyypoglcyemia discussed. Blood glucose monitoring with fingers sticks.... Medications: Add Bydureon Assessment & Plan (06/24/2019 11:00 AM CDT): Hba1c was Lab Results Component Value Date HGBA1C 7.3 06/24/2019 today, indicating sub-optimal DM control 1800 calorie, consistent carb diet recommended, no more than 3-45 grams of carbs per meal, avoiding concentrated sweet drinks and rapid absorption carbs. 25-45 min daily aerobic and resistance exercise recommended Prevention and treatment of hyypoglcyemia discussed. Blood glucose monitoring with fingers sticks 2 x day Medications: Continue current Paroxysmal atrial fibrillation 07/12/2016 Overview (08/25/2016): Paroxysmal atrial fibrillation Acquired hypothyroidism 07/12/2016 Overview (08/25/2016): Hypothyroidism (acquired) Assessment & Plan (06/24/2024 8:57 AM CDT): Chronic problem; unknown status. Clinically euthyroid. currently taking levothyroxine 50mcg daily. Aware to take 1st thing in morning, 30-60 minutes before food/drink/other medications. TSH/T4 ordered. Verified that she uses mychart. Aware to check results/results letter in [employer]. Will contact by phone if needed. Assessment & Plan (12/26/2023 1:40 PM CDT): Chronic, stable. Continue levothyroxine therapy, 50 mcg Assessment & Plan (02/12/2023 9:08 AM SINGLE PASS SOIL STABILIZER OPERATOR): Chronic problem. Currently taking levothyroxine 50mcg daily. TSH/T4 ordered. Verified that she uses mychart. Aware to check results/results letter in [employer]. Will contact by phone if needed. Reviewed medication scheduling: aware to take 1st thing in morning, 30-60 minutes before food/drink/other medications. Assessment & Plan (12/01/2021 1:16 PM CDT): Thyroid function tests, including TSH and free T4 were requested today. Stay on current daniels of Synthroid ( Levothyroxine ) Take it on an empty stomach, 1 hour apart from food or any other meds. If you miss 1 or more pills, you can always take the missed pills together , making sure that at the end of the week you have taken all of your pills. I will notify you if any changes are neccessary after I get the results of the blood tests . Assessment & Plan (07/26/2021 11:24 AM CDT): Continue Levothyroxine at current dose Assessment & Plan (05/25/2020 4:31 PM SINGLE PASS SOIL STABILIZER OPERATOR): Thyroid function tests, including TSH and free T4 were requested Will adjust dose of Levothyroxine accordingly . If there is a need to make changes, will recheck levels in 2-3 months. Instructions to patient on taking medication properly : in the morning, on an empty stomach , 1 h part from food and/or other meds. Assessment & Plan (06/24/2019 11:01 AM CDT): Check TFT's Adjust dose of levothyroxine as indicated Diffuse goiter 07/12/2016 Overview (08/25/2016): Goiter diffuse Hypertension associated with diabetes 07/12/2016 Overview (08/25/2016): HTN (hypertension), benign Assessment & Plan (06/24/2024 8:57 AM CDT): Chronic problem. Controlled on current losartan-HCTZ 50-12.5mg daily, metoprolol XL 150mg daily, Will update labs today. Verified that she uses [employer]. Aware to check results/results letter in [employer]. Will contact by phone if needed. Assessment & Plan (12/26/2023 1:40 PM CDT): Chronic, stable. Continue current medications including losartan Assessment & Plan (05/31/2023 9:50 AM SINGLE PASS SOIL STABILIZER OPERATOR): Chronic, well controlled Continue Hyzaar Assessment & Plan (02/12/2023 9:07 AM SINGLE PASS SOIL STABILIZER OPERATOR): Chronic problem. Controlled on current losartan-HCTZ 50-12.5mg daily, metoprolol XL 150mg daily, Will update labs today. Verified that she uses mychart. Aware to check results/results letter in [employer]. Will contact by phone if needed. Assessment & Plan (01/27/2021 10:37 AM CDT): Low salt diet Exercise Continue Hyzaar Check microalbumin Assessment & Plan (09/30/2020 10:50 AM CDT): Controlled on current medications. Continue plan. Assessment & Plan (12/18/2019 11:58 AM CDT): Goal blood pressure is less than 140/85 Low salt diet was discussed andd recommended The importance of daily aerobic exercise was also emphasized. Continue current meds, including MATHIEU-I or ARB Losartan Assessment & Plan (06/24/2019 11:01 AM CDT): Goal blood pressure is less than 140/85 Low salt diet recommended Daily aerobic exercise Continue current meds, including MATHIEU-I or ARB Check microalbumin Chronic anticoagulation 07/12/2016 Overview (08/25/2016): Chronic anticoagulation Social History Tobacco Use Types Packs/Day Years Used Date Smoking Tobacco: Never Smokeless Tobacco: Never Tobacco Cessation:Counseling Given: Not Answered Alcohol Use Standard Drinks/Week Comments Yes 0 (1 standard drink = 0.6 oz pur e alcohol) AUDIT-C Answer Date Recorded Q1: How often do you have a drink containing alcohol? Never 12/26/2023 Q2: How many drinks containi ng alcohol do you have on a typical day when you are drinking? Patient does not drink Q3: How often do you have si x or more drinks on one occasion? Never 12/26/2023 PHQ-2 Answer Date Recorded PHQ-2 Total Score (If total score is 3 or more points, staff should administer the PHQ-9) 0 12/26/2023 Comments Unknown Sex and Gender Information Value Date Recorded Sex Assigned at Not on file Legal Sex Female 1:34 PM SINGLE PASS SOIL STABILIZER OPERATOR Gender Identity Female 04/16/2023 7:34 AM SINGLE PASS SOIL STABILIZER OPERATOR Sexual Orientation Straight 12/26/2023 1: 21 PM CDT Last Filed Vital Signs Vital Sign Reading Time Taken Comments Blood Pressure 112/58 07/23/2024 11:05 AM CDT Pulse 70 07/23/2024 11:05 AM CDT Temperature - - Respiratory Rate 18 06/24/2024 8:52 AM CDT Oxygen Saturation 97% 07/23/2024 11:05 AM CDT Inhaled Oxygen Concentration - - Weight 83 kg (183 lb) 07/23/2024 11:05 AM CDT Height 170.2 cm (5' 7) 07/23/2024 11:05 AM CDT Body Mass Index 28.66 07/23/2024 11:05 AM CDT Plan of Treatment Not on file Procedures Procedure Name Priority Date/Time Associated Diagnosis Comments ELECTROCARDIOGRAM REPORT Routine 07/23/2024 Paroxysmal atrial fibrillation (HCC) EGFR Routine 06/24/2024 12:00 PM CDT Type 2 diabetes mellitus with hyperglycemia, without long-term current use of insulin (HCC) Hypertension associated with diabetes (HCC) LIPID PANEL Routine 06/24/2024 12:00 PM CDT Type 2 diabetes mellitus with hyperglycemia, without long-term current use of insulin (HCC) Mixed diabetic hyperlipidemia associated with type 2 diabetes mellitus (CMS/HCC) (HCC) ALBUMIN CREATININE RATIO, URINE Routine 06/24/2024 12:00 PM CDT Type 2 diabetes mellitus with hyperglycemia, without long-term current use of insulin (HCC) POCT HEMOGLOBIN A1C Routine 06/24/2024 8 :55 AM CDT Type 2 diabetes mellitus with hyperglycemia, without long-term current use of insulin (HCC) HM DIABETES EYE EXAM Routine 02/27/2023 9:25 AM SINGLE PASS SOIL STABILIZER OPERATOR from Last 3 Months or Most Recently Relevant to Health Maintenance Results * Electrocardiogram Report (07/23/2024) 07/23/2024 us Wagner Chen MD ECG ORDERABLES Final Result * eGFR (06/24/2024 12:00 PM CDT) eGFR >90 >=60 mL/min/1. 73 m2 Comment: Interpretive Data Reference Interval Normal >/= 90 mL/min/1.73m2 Mildly decreased* 60 - 89 mL/min/1.73m2 Mildly to moderately decreased 45 - 59 mL/min/1.73m2 Moderately to severely decreased 30 - 44 mL/min/1.73m2 Severely decreased 15 - 29 mL/min/1.73m2 Kidney Failure < 15 mL/min/1.73m2 *Relative to young adult level Estimated glomerular filtration rate is determined by the 2020 CKD-EPI equation recommended by the National Kidney Foundation (A Unifying Approach to GFR Estimation: Recommendations of the NKF-ASK Task Force on Reassessing the Inclusion of Race in Diagnosing Kidney Disease, JASN 2020). The CKD-EPI equation should not be used for patients with unstable renal function and has not been validated in children and those over 70. Current interpretive data was last reviewed 2021. Blood 06/24/2024 12:0 0 PM CDT 06/24/2024 3:48 PM CDT us Jalyn Rodriguez NP LAB BLOOD ORDERABLES Sandra l Result [facility] [id number] [address] Department [place] [address] * Albumin Creatinine Ratio, Urine (06/24/2024 12:00 PM CDT) Albumin Ur <12.0 mg/L Comment: Interpretive Data No reference range established. Current interpretive data was last revised 2018. Creatinine Ur 110.8 mg/dL EMANUEL NOYOLA Comment: Interpretive Data No reference range established. Current interpretive data was last revised 2018. Albumin Creatinine Ratio, Ur <11 1 - 29 mg/g [facility] Urine 06/24/2024 12:0 0 PM CDT 06/24/2024 3:39 PM CDT us Jalyn Rodriguez NP LAB URINE ORDERABLES Sandra aparicio Result [facility] [id number] Department [place] [address] * (ABNORMAL) Lipid panel (06/24/2024 12:00 PM CDT) Cholesterol 105 30 - 199 mg/dL Comment: Interpretive Data Ages < or = 19 years Acceptable: <170 mg/dL Borderline high: 170-199 mg/dL High: >or= 200 mg/dL Ages > or = 20 years Desirable: <200 mg/dL Borderline high: 200-239 mg/dL High: >or= 240 mg/dL Literature References: 1. Expert Panel on Integrated Guidelines for Cardiovascular Health and Risk Reduction in Children and Adolescents. Pediatrics 2011;128:S213 2. NCEP Expert Panel. Circulation 2004;110:227 Current Interpretive Data was last revised on 2017. Triglycerides 166(H) <=149 mg/dL E[facility]EL NOYOLA Comment: Interpretive Data Ages < or = 9 years Acceptable: <75 mg/dL Borderline high: 75-99 mg/dL High: >or= 100 mg/dL Ages 10 to 20 years Acceptable: <90 mg/dL Borderline high: 90-129 mg/dL High: >or= 130 mg/dL Ages > or = 20 years Desirable: <150 mg/dL Borderline high: 150-199 mg/dL High: 200-499 mg/dL Very high: >or= 499 mg/dL Literature References: 1. Expert Panel on Integrated Guidelines for Cardiovascular Health and Risk Reduction in Children and Adolescents. Pediatrics 2011;128:S213 2. NCEP Expert Panel. Circulation 2004;110:227 Current Interpretive Data was last revised on 2017. HDL 38(L) >=40 mg/dL EMANUEL NOYOLA Comment: Interpretive Data Ages < or = 19 years Acceptable: >45 mg/dL Borderline low: 40-45 mg/dL Low: <40 mg/dL Ages > or = 20 years Desirable: >or= 60 mg/dL Low: <40 mg/dL Literature References: 1. Expert Panel on Integrated Guidelines for Cardiovascular Health and Risk Reduction in Children and Adolescents. Pediatrics 2011;128:S213 2. NCEP Expert Panel. Circulation 2004;110:227 Current Interpretive Data was last revised on 2017. LDL, calculated 39 <=129 mg/dL EMANUEL NOYOLA Comment: Interpretive Data Ages < or = 19 years Acceptable: <110 mg/dL Borderline high: 110-129 mg/dL High: >or= 130 mg/dL Ages > or = 20 years Optimal: <100 mg/dL Near optimal: 100-129 mg/dL Borderline high: 130-159 mg/dL High: >160 mg/dL Calculated using the Maximus LDL-C estimating equation. This equation was implemented on 2023. Prior to this date LDL-C was estimated using the Friedewald equation. Literature References: 1. Expert Panel on Integrated Guidelines for Cardiovascular Health and Risk Reduction in Children and Adolescents. Pediatrics 2011;128:S213 2. NCEP Expert Panel. Circulation 2004;110:227 3. Maximus M et al. MELO Cardiol. 2019July 31;5(5):540-548. doi: [email or web address] Current Interpretive Data was last revised on 2023. Non-HDL Cholesterol 67 mg/dL EMAN[facility]EL NOYOLA Comment: Interpretive Data Ages < or = 19 years Acceptable: <120 mg/dL Borderline high: 120-144 mg/dL High: >145 mg/dL Ages > or = 20 years When triglycerides are >200 mg/dL, Non-HDL cholesterol is a secondary target of therapy with treatment goals that are 30 mg/dL greater than the LDL cholesterol target. Literature References: 1. Expert Panel on Integrated Guidelines for Cardiovascular Health and Risk Reduction in Children and Adolescents. Pediatrics 2011;128:S213 2. NCEP Expert Panel. Circulation 2004;110:227 Current Interpretive Data was last revised on 2017. Chol/HDL ratio 3 [facility]EL NOY[facility]A Blood 06/24/2024 12:0 0 PM CDT 06/24/2024 3:39 PM CDT us Jalyn Rodriguez NP LAB BLOOD ORDERABLES Sandra aparicio Result [facility] [id number] [address] Department [place] [address] * (ABNORMAL) POCT hemoglobin A1c (06/24/2024 8:55 AM CDT) Hemoglobin A1C, POC 7.8 4.0 - 5.6 % Blood 06/24/2024 8:55 AM CDT us Jalyn Rodriguez NP POINT OF CARE TEST ORDERA BLES Final Result * DIABETES EYE EXAM (02/27/2023 9:25 AM SINGLE PASS SOIL STABILIZER OPERATOR) us Historical Provider HEALTH MAINTENANCE Final Result from Last 3 Months or Most Recently Relevant to Health Maintenance Insurance [facility] MEDICARE [facility] MEDIC[facility] Address: [address] [address] [facility] MEDICARE [facility] MEDICARE Address: [facility] [address] [place] [address] Care Teams Asbestos Siding Mechanic Relationship Specialty Start Date End Date Korey Boudreaux DO [address] [place] [address] PCP - General Family Medicine 02/16/20
--- OUTSIDE RECORDS SUMMARY | 2024-10-14 14:43 | XMS_ITS | Clinical Summary ---
Author Organization [facility] Address [address] [place] [id number] Care Team Providers Care Mutuel Clerk Name Role Phone Unavailable Primary Care Provider Unavailabl e Social History Tobacco Use Types Packs/Day Years Used Date Smoking Tobacco: Never Assessed Comments Unknown Sex and Gender Information Value Date Recorded Sex Assigned at Not on file Legal Sex Female 10:12 AM PAVER LAYER Gender Identity Not on file Sexual Orientation Not on file Plan of Treatment Health Maintenance Due Date Last Done Comments Colorectal Cancer Screening Colonoscopy (10 Years) 1950 Hepatitis C 08/19/1969 DTaP, Tdap and Td Vaccines ( 1 - Tdap) 08/19/1970 Mammogram Screening 1991 Pneumococcal Vaccine: 50+ Ye ars (1 of 1 - PCV) 08/19/2001 Zoster Vaccines (1 of 2) 08/19/2001 Dexa Scan (General) 08/19/2016 COVID-19 Vaccine ( - 2023-2 5 season) 2023 RSV Immunization or 60+ Years (1 - 1-dose 75+ series) 08/19/2026 Meningococcal B Vaccine Aged Out No l onger eligible based on patient's age to complete this topic Meningococcal Vaccine Aged Out No samantha taylor eligible based on patient's age to complete this topic RSV Immunizations Under 20 Months Aged Out No longer eligible based on patient's age to complete this topic
--- OUTSIDE RECORDS SUMMARY | 2024-10-14 14:43 | XMS_ITS | Encounter Summary ---
Author Organization [facility] Address [address] [place] [address] Care Team Providers Care Body Painter Name Role Phone Danny Carreno MD Primary Care Provider [phone] Markell Carter MD Primary Care Provider [phone] Korey Boudreaux DO Primary Care Provider Encounter Details Date Type Department Care Team (Late st Contact Info) Description 07/17/2016 Orders Only [facility] ProviderKing MD [address] [place] [id number] Social History Tobacco Use Types Packs/Day Years Used Date Smoking Tobacco: Never Alcohol Use Standard Drinks/Week Comments Yes 0 (1 standard drink = 0.6 oz pur e alcohol) Comments Unknown Sex and Gender Information Value Date Recorded Sex Assigned at Not on file Legal Sex Female 1:34 PM SURFACE BOSS Gender Identity Female 04/16/2023 7:34 AM SURFACE BOSS Sexual Orientation Straight 12/26/2023 1: 21 PM CDT documented as of this encounter Plan of Treatment Not on file documented as of this encounter Procedures Procedure Name Priority Date/Time Associated Diagnosis Comments CARDIOLOGY REPORT 07/17/2016 CARDIOLOGY REPORT 07/17/2016 documented in this encounter Results * CARDIOLOGY REPORT (07/17/2016) Anatomical Region Laterality Modality Other Narrative 07/17/2016 Ordered by an unspecified provider. us Historical Provider [facility] CARDIAC SERVICES PROCE DURES Final Result * CARDIOLOGY REPORT (07/17/2016) Anatomical Region Laterality Modality Other Narrative 07/17/2016 Ordered by an unspecified provider. Historical Provider CV CARDIAC SERVICES PROCE DURES Final Result documented in this encounter Visit Diagnoses Not on filedocumented in this encounter Care Teams Body Painter Relationship Specialty Start Date End Date Danny Carreno MD [address] [place] [address] PCP - General 06/30/16 11/20/18 Markell Carter MD [address] [place] [address] PCP - General Family Medicine 11/21/18 02/15/20 Korey Boudreaux DO [address] [place] [address] PCP - General Family Medicine 02/16/20 documented as of this encounter
--- OUTSIDE RECORDS SUMMARY | 2024-10-14 14:43 | XMS_ITS | Clinical Summary ---
Author Organization [facility] [address] Address [address] [place] [address] Care Team Providers Care Brisket Puller Name Role Phone Korey Boudreaux Primary Care Provider Allergies Active Allergy Reactions Criticality Noted Date [...] 1 capsule (3 mg total) by mouth general repair mechanic before breakfast 021 Active lancets miscIndications:T ype [...] hyperglycemia, without long-term current use of insulin ([facility]) TAKE ONE TABLET BY MOUTH FOUR TIMES A DAY 360 tablet 3 025 Active semaglutide (Ozempic) 1 mg/dose (4 mg/3 mL) pen injector injection INJECT 1 MG SUBCUTANEOUSLY EVERY 7 DAYS E11.65 9 mL 3 025 Active Jardiance 25 mg tabletIndications :Type 2 diabetes mellitus with hyperglycemia, without long-term current use of insulin ([facility]) TAKE ONE TABLET BY MOUTH IN THE [...] hyperglycemia, without long-term current use of insulin ([facility]) TAKE ONE TABLET BY MOUTH TWICE A [...] hyperglycemia, without long-term current use of insulin ([facility]) TEST SUGAR ONCE DAILY IN THE MORNING 100 strip 3 025 Active blood glucose diagnostic stripIndications: Type 2 diabetes mellitus with hyperglycemia, without long-term current use of insulin ([facility]) Test sugar every morning 100 each 3 023 2024 Discontinued Active Problems Problem Noted Date Diagnosed Date Palpitations 02/16/2020 Mixed diabetic hyperlipidemi a associated with type 2 diabetes mellitus ([facility]) 07/29/2019 Assessment & Plan (06/24/2024 8:58 AM CDT): Chronic problem. Was at goal last check on Rosuvastatin 10mg. Last lipid panel: 02/12/23 LDL=61, EH=552. Will update labs. Verified that she uses [facility]. Aware to check results/results letter in mychart. Will contact by phone if needed. Assessment & Plan (05/31/2023 9:51 AM LEAD INVESTIGATOR): Chronic, well controlled Continue Rosuvastatin Assessment & Plan (02/12/2023 9:07 AM LEAD INVESTIGATOR): Chronic problem. Was at goal last year on Rosuvastatin 10mg. Last lipid panel: 12/01/21 LDL=62, JR=889. Will update labs. Verified that she uses mychart. Aware to check results/results letter in [facility]. Will contact by phone if needed. Assessment [...] therapy. Assessment & Plan (05/25/2020 4:31 PM LEAD INVESTIGATOR): Goal of treatment , LDL cholesterol less [...] Discussed improving diet/activity. If no improvement in BG/Z8g--tljj make med changes at next appt. Current medications: Metformin 1000mg twice daily with meals Jardiance 25mg nightly Glimepiride 4mg twice daily with meals Ozempic 1 mg weekly Ozempic 0.5mg weekly Will update labs today. Verified that she uses [employer]. Aware to check results/results letter in [employer]. Will contact by phone if needed. UTD on DM eye exam (02/27/23 no DMR [facility]) Strive for regular exercise (30min most days) [...] mg Assessment & Plan (05/31/2023 9:49 AM LEAD INVESTIGATOR): Chronic , well controlled Stop Januvia Continue Ozempic , Glimeiride , Januvia and Metformin Diet and exercise. Assessment & Plan (02/12/2023 9:21 AM LEAD INVESTIGATOR): Chronic problem. Not at goal/uncontrolled with A1c 8.3% today. Increase Ozempic from 0.5mg weekly to 1mg weekly. Current medications: Metformin 1000mg twice daily with meals Januvia 100mg daily Jardiance 25mg nightly Glimepiride 4mg twice daily with meals Ozempic 0.5mg weekly Will update labs today. Verified that she uses [employer]. Aware to check results/results letter in [employer]. Will contact by phone if needed. DM [...] reviewed. Assessment & Plan (05/25/2020 4:31 PM LEAD INVESTIGATOR): Hba1c was Lab Results Component Value Date [...] medications. TSH/T4 ordered. Verified that she uses [employer]. Aware to check results/results letter in [employer]. Will contact by phone if needed. Assessment & Plan (12/26/2023 1:40 PM CDT): Chronic, stable. Continue levothyroxine therapy, 50 mcg Assessment & Plan (02/12/2023 9:08 AM LEAD INVESTIGATOR): Chronic problem. Currently taking levothyroxine 50mcg daily. TSH/T4 ordered. Verified that she uses [facility]. Aware to check results/results letter in [employer]. Will contact by phone if needed. Reviewed [...] dose Assessment & Plan (05/25/2020 4:31 PM LEAD INVESTIGATOR): Thyroid function tests, including TSH and free [...] update labs today. Verified that she uses [employer]. Aware to check results/results letter in [employer]. Will contact by phone if needed. Assessment & Plan (12/26/2023 1:40 PM CDT): Chronic, stable. Continue current medications including losartan Assessment & Plan (05/31/2023 9:50 AM LEAD INVESTIGATOR): Chronic, well controlled Continue Hyzaar Assessment & Plan (02/12/2023 9:07 AM LEAD INVESTIGATOR): Chronic problem. Controlled on current losartan-HCTZ 50-12.5mg daily, metoprolol XL 150mg daily, Will update labs today. Verified that she uses [employer]. Aware to check results/results letter in [employer]. Will contact by phone if needed. Assessment [...] Chronic anticoagulation 07/12/2016 Overview (08/25/2016): Chronic anticoagulation Encounters Date Type Department Care Team Description 07/23/2024 11:15 AM CDT Office Visit [facility] Card[facility] [address] [place] [address] Wagner Chen MD Paroxysmal atrial fibrillation (HCC) (Primary Dx); Chronic anticoagulation; Hypertension associated with diabetes (HCC) from Last 3 Months Surgical History Surgery Date Site/Laterality Comments THYROID SURGERY Medical History Medical History Date Comments Hx Other Medical Arrhythmias Atr ial fibrillation parox Hypertension Hypertension Hx Other Medical Goiter Hx Other Medical Diabetes Type I I Adiposity Obesity Family History Medical History Relation Name Comments Other Father 2 Alive and well; Ovarian cancer Mother 2 Cancer, ovari an; Cause of : Cancer, ovarian Relation Name Status Comments Father 1 Alive Father 2 Mother 1 (Age 70) Mother 2 Social History Tobacco Use Types Packs/Day Years [...] on file Legal Sex Female 1:34 PM LEAD INVESTIGATOR Gender Identity Female 04/16/2023 7:34 AM LEAD INVESTIGATOR Sexual Orientation Straight 12/26/2023 1: 21 PM CDT Obstetrics History Last Filed Vital Signs Vital Sign Reading [...] 07/23/2024 11:05 AM CDT Plan of Treatment Health Maintenance Due Date Last Done Comments Breast Cancer Screening-Mammogram 1950 Colon Cancer Screening-Colonoscopy 1950 Hepatitis C Screening 1950 Osteoporosis Screening-Bone Density Scan 1950 DTaP/Tdap/Td Vaccine (1 - Tdap) 08/19/1962 Hepatitis B Screening 08/19/1969 Pneumococcal vaccine 65+ (1 of 2 - PCV) 08/19/1970 Zoster Vaccine (1 of 2) 08/19/2001 Well Visit 65+ 08/19/2016 Covid-19 Vaccine (4 - 2023-2 5 season) 2023 01/19/2021, 06/11/2020, 05/21/2020 Influenza Vaccine (#1) 2024 02/15/2024 Depression Screening 12/25/2024 12/26/2023, 12/01/2021, 07/26/2021, Additional history exists Fall Risk Assessment 12/25/2024 12/26/2023 Hemoglobin A1C 12/25/2024 06/24/2024, 0908/2023, 05/31/2023, Additional history exists Dilated Eye Exam 02/27/2025 02/27/2023, 01/2023, 08/06/2020 Albumin Creatinine Ratio, Urine 06/24/2025 06/24/2024, 02/12/2023, 12/01/2021, Additional history exists Foot Exam 06/24/2025 06/24/2024, 06/02, 01/27/2021, Additional history exists Lipid Panel 06/24/2025 06/24/2024, 01/31, 12/01/2021, Additional history exists eGFR 06/24/2025 06/24/2024, 01/31, 12/01/2021, Additional history exists Procedures Procedure Name Priority Date/Time Associated Diagnosis [...] DIABETES EYE EXAM Routine 02/27/2023 9:25 AM LEAD INVESTIGATOR from Last 3 Months or Most Recently [...] 06/24/2024 3:48 PM CDT us Jalyn Rodriguez ELECTRONIC DEVELOPMENT TECHNICIAN LAB BLOOD ORDERABLES Sandra l Result [address] [id number] [address] [place] [address] * Albumin Creatinine Ratio, Urine [...] URINE ORDERABLES Sandra aparicio Result [facility] [place] [address] [address] [place] [address] * (ABNORMAL) Lipid panel (06/24/2024 12:00 PM [...] NCEP Expert Panel. Circulation 2004;110:227 3. Maximus Dickinson et al. MELO Cardiol. 2019July 31;5(5):540-548. doi: [...] BLOOD ORDERABLES Sandra aparicio Result [facility] [place] [address] [address] [place] [address] * (ABNORMAL) POCT hemoglobin A1c (06/24/2024 8:55 AM CDT) Hemoglobin A1C, POC 7.8 4.0 - 5.6 % Blood 06/24/2024 8:55 AM CDT Jalyn Rodriguez ELECTRONIC DEVELOPMENT TECHNICIAN POINT OF CARE TEST ORDERA BLES Final Result * DIABETES EYE EXAM (02/27/2023 9:25 AM LEAD INVESTIGATOR) Historical Provider MD HEALTH MAINTENANCE Final Result from Last 3 Months or Most Recently Relevant to Health Maintenance Insurance [facility] MEDICARE ADVANTAGE [facility] MEDICARE ADVANTAGE Care Teams Brisket Puller Relationship Specialty Start Date End Date Korey Boudreaux DO [address] [place] [address] PCP - General Family Medicine 02/16/20
--- NOTE | 2024-10-14 14:47 | ECHO_ITS ---
Patient Info Name: Regina Quinteros Age: 74 years : 1950 Gender: Female Ht: 68 in Wt: 182 lbs BSA: 2.01 m2 HR: 63 bpm BP: 140 / 80 mmHg Technical Quality: Fair Exam Date: 10/14/2024 2:55 PM Patient Status: O Admit Date: 10/14/2024 Exam Type: CA echo doppler color flow Complete two-dimensional, color flow and Doppler transthoracic echocardiogram is performed. Accounting Manager Assistant Controller: Tawanna Chavez Summary 1. Complete two-dimensional, color flow and Doppler transthoracic echocardiogram is performed. 2. Left ventricular chamber dimension is normal. 3. Left ventricular systolic function is normal, estimated at 60-65. 4. The left ventricular diastolic function is grade I diastolic dysfunction. 5. E/e' 9 is minimally elevated. 6. There is trace mitral valve regurgitation. 7. There is mild tricuspid valve regurgitation. 8. No pulmonary hypertension, estimated pulmonary arterial systolic pressure is 33 mmHg. 9. Small atheroma in posterior aortic root. Left Ventricle E/e' 9 is minimally elevated. Left ventricular chamber dimension is normal. Left ventricular systolic function is normal, estimated at 60-65. The left ventricular diastolic function is grade I diastolic dysfunction. Right Ventricle Right ventricular chamber dimension is normal. Right ventricular systolic function is normal and with normal TAPSE 2.2 cm. Left Atria Left atrial chamber dimension is normal. Right Atria Right atrial chamber dimension is normal. Aortic Valve The aortic valve is trileaflet. There is no aortic valve stenosis. There is no aortic valve regurgitation. Pulmonic Valve There is no pulmonic regurgitation. Mitral Valve There is no mitral valve stenosis. There is trace mitral valve regurgitation. Tricuspid Valve There is mild tricuspid valve regurgitation. No pulmonary hypertension, estimated pulmonary arterial systolic pressure is 33 mmHg. Pericardium/Pleural There is no pericardial effusion. Inferior Vena Cava Normal inferior vena cava with >50% collapse upon inspiration consistent with normal right atrial pressure, 5 mmHg. Aorta The aortic root size at the sinus of Valsalva is normal. Small atheroma in posterior aortic root. Left Ventricular Outflow Tract Name Value Normal LVOT 2D LVOT Diameter 1.9 cm LVOT Doppler LVOT Peak Velocity 103 cm/s LVOT Peak Gradient 4 mmHg LVOT Mean Gradient 2 mmHg LVOT VTI 23 cm LVOT VTI/AV VTI Ratio 0.7 LVOT Stroke Volume 62 ml LVOT CO 3.8 l/min LVOT CI 1.9 l/min/m2 Pulmonic Valve Name Value Normal PV Doppler PV Peak Velocity 90 cm/s PV Peak Gradient 3 mmHg Mitral Valve Name Value Normal MV Diastolic Function MV E Peak Velocity 65 cm/s MV A Peak Velocity 96 cm/s MV E/A 0.7 MV Decel Time (PW) 260 ms MV Annular TDI MV E/e' (Septal) 12.5 MV E/e' (Lateral) 7.4 MV E/e' (Average) 9.9 Tricuspid Valve Name Value Normal TV Regurgitation Doppler TR Peak Velocity 267 cm/s TR Peak Gradient 22 mmHg Estimated PAP/RSVP RA Pressure 5 mmHg <=5 PA Systolic Pressure 33 mmHg <36 RV Systolic Pressure 33 mmHg <36 TV Annular TDI TV Lateral Ju s' Velocity 14.1 cm/s >=9.5 Aortic Valve Name Value Normal AV Doppler AV Peak Velocity 150 cm/s AV Peak Gradient 9 mmHg AV Mean Gradient 5 mmHg AV VTI 31 cm AV Area (Cont Eq VTI) 2.0 cm2 >=3.0 AV Area (Cont Eq Sudheer) 1.9 cm2 AV DI (Sudheer) 0.68 AV Regurgitation 2D LVOT Area 2.7 cm2 Ventricles Name Value Normal LV Dimensions 2D/MM IVS Diastolic Thickness (2D) 1.0 cm 0.6-1.0 LVID Diastole (2D) 4.5 cm 3.8-5.2 LVIW Diastolic Thickness (2D) 0.9 cm 0.6-0.9 LVID Systole (2D) 2.9 cm 2.2-3.5 LVOT Diameter 1.9 cm LV Mass (2D Cubed) 141.41 g 67.00-162.00 LV Mass Index (2D Cubed) 70 g/m2 43-95 Relative Wall Thickness (2D) 0.40 <=0.42 LV Fractional Shortening/Ejection Fraction 2D/MM LV Fractional Shortening (2D) 35 % 27-45 LV EF (2D Teichholz) 65 % LV Diastolic Volume (4C MOD) 83 ml LV EF (4C MOD) 65 % LV Diastolic Volume (2C MOD) 78 ml LV EF (2C MOD) 62 % LV Diastolic Volume (BP MOD) 83 ml 46-106 LV Diastolic Volume Index (BP MOD) 41 ml/m2 29-61 LV Systolic Volume (BP MOD) 30 ml 14-42 LV Systolic Volume Index (BP MOD) 15 ml/m2 8-24 LV EF (BP MOD) 64 % 54-74 LV Diastolic Length (4C) 7.9 cm LV Systolic Length (4C) 6.1 cm LV Stroke Volume (4C MOD) 54 ml Atria Name Value Normal LA Dimensions LA Volume (4C A-L) 50 ml LA Volume (BP A-L) 55 ml RA Dimensions RA Systolic Major [place] Length (4C) 4.9 cm 2.2-2.8 RA Area (4C) 14.5 cm2 <=18.0 Report Signatures
== END 2024-10-14 14:41 | disposition home or self-care (01) ==
LOC: CHSIMG 14:42
PROVIDERS: PCP Family Medicine
DX: I48.0 Paroxysmal atrial fibrillation (principal); I07.1 Rheumatic tricuspid insufficiency
CPT/HCPCS: 93306